=== PATIENT | female | born 1950 | race Caucasian/White ===

== ENCOUNTER 2017-08-07 18:06 | Emergency (ER) | payer MEDICARE ==
[2017-08-07 18:20] VITALS: BP 154/64; PULSE 70; RESP 16; TEMP 98.6; O2SAT 99
--- NOTE | 2017-08-07 18:51 | ED PDOC ---
HPI: Trauma/Fall - HPI Time Seen by Provider: 08/07/17 18:21 Chief Complaint (Nursing): Abnormal Skin Integrity Chief Complaint (Provider): Fall related facial injury History Per: Patient History/Exam Limitations: no limitations Onset/Duration Of Symptoms: Hrs Associated Symptoms: denies: Dizziness, LOC Additional Complaint(s): Patient is 67 y/o female with no significant past medical history presenting to the emergency department for facial redness and swelling status post fall. Reports that she was walking to her car when she slipped and fell. Redness to the right area of her forehead and redness/swelling of nose noted. Also reports numbness to the nose, bilateral wrist pain, and mild neck pain. Denies facial pain, headache, dizziness, loss of consciousness, visual changes, or other complaints. Tetanus shot up to date. PCP: Dr. Criss Gomez Past Medical History Reviewed: Historical Data, Nursing Documentation, Vital Signs Vital Signs: Last Vital Signs Temp 98.6 F 08/07/17 18:17 Pulse 70 08/07/17 18:17 Resp 16 08/07/17 18:17 BP 154/64 H 08/07/17 18:17 Pulse Ox 99 08/07/17 19:11 - Medical History PMH: No Chronic Diseases - Surgical History Other surgeries: Knee surgery - Family History Family History: States: Unknown Family Hx - Social History Current smoker - smoking cessation education provided: No Ex-Smoker (has not smoked in the last 12 months): No Alcohol: None Drugs: Denies - Immunization History Hx Tetanus Toxoid Vaccination: Yes - Home Medications Home Medications: Ambulatory Orders Medication Instructions Recorded Cephalexin [Keflex] 500 mg PO Q6 #28 capsule 07/13/16 Naproxen [Naprosyn] 500 mg PO BID #20 tablet 07/13/16 - Allergies Allergies/Adverse Reactions: Allergies Allergy/AdvReac Type Severity Reaction Status Date / Time No Known Allergies Allergy Verified 07/13/16 20:57 Review of Systems ROS Statement: Except As Marked, All Systems Reviewed And Found Negative Eyes: Negative for: Vision Change ENT: Positive for: Other (numbness of nose) Musculoskeletal: Positive for: Hand Pain (bilateral wrist pain), Other (mild neck pain) Skin: Positive for: Other (redness on right area of forehead and nasal bridge. no active bleeding) Neurological: Negative for: Headache, Dizziness, Other (loss of consciousness) Physical Exam - Reviewed Nursing Documentation Reviewed: Yes Vital Signs Reviewed: Yes - Physical Exam Appears: Positive for: Non-toxic, No Acute Distress Head Exam: Positive for: NORMAL INSPECTION, NORMOCEPHALIC (with abrasion to right forehead and nasal bridge. moderate swelling across proximal nasal bridge) Skin: Positive for: Normal Color, Warm, Dry Eye Exam: Positive for: Normal appearance ENT: Positive for: Other (bilateral nares are patent. 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 Negative for: Motor/ Sensory Deficits - ECG O2 Sat by Pulse Oximetry: 99 (RA) Pulse Ox Interpretation: Normal - Other Rad CT head X-Ray: Read By Radiologist X-Ray Interpretation: see below CT facial bones X-Ray: Read By Radiologist X-Ray Interpretation: see below Right and left wrist x-rays X-Ray: Interpreted by Me, Viewed By Me X-Ray Interpretation: no fx, no dis Medical Decision Making Medical Decision Making: Time: 18:50 Initial impression: Facial injury due to fall Initial plan: * Head CT scan w/o contrast * Maxillofacial CT scan w/o contrast * X-ray right and left wrists * X-ray right and left hands * Tylenol 975 mg PO * Reevaluation CT head: IMPRESSION: 1. Nondisplaced anterior nasal bone fracture with overlying soft tissue swelling. 2. Small inferior frontal scalp/forehead contusion. CT facial bones: IMPRESSION: 1. No acute intracranial abnormality. 2. Mild cortical volume loss. 3. Sequela of chronic microvascular disease. 4. Sequela of remote left lacunar infarction versus prominent Virchow-Bennie (perivascular) space. Patient aware of all diagnostic testing results, all questions answered. Patient was instructed to take Tylenol every 4-6 hours for pain. Patient was referred to ear, nose and throat specialist field application engineer for follow-up. Wound care instructions provided. Patient is aware she can return to emergency department any time if acutely worse. Scribe Attestation: Documented by Darlin Banda, acting as a scribe for VAN Hernandez. Provider Scribe Attestation: All medical record entries made by the Scribe were at my direction and personally dictated by me. I have reviewed the chart and agree that the record accurately reflects my personal performance of the history, physical exam, medical decision making, and the department course for this patient. I have also personally directed, reviewed, and agree with the discharge instructions and disposition. Procedures - Splinting Location: right wrist Pre-Made Type: velcro Pre-Proc Neuro Vasc Exam: normal Post-Proc Neuro Vasc Exam: normal Disposition - Clinical Impression Clinical Impression: Head injury, Nasal bone fracture, Facial contusion, Abrasions of multiple sites , Right wrist sprain, Left wrist sprain - Patient ED Disposition Is Patient to be Admitted: No Counseled Patient/Family Regarding: Studies Performed, Diagnosis, Need For Followup - Disposition Referrals: Jj Oliver MD [Staff Provider] - Disposition: Routine/Home Disposition Time: 21:24 Condition: STABLE Additional Instructions: Keep wounds clean and dry. Apply neosporin once per day to wounds. Ice affected areas. Take tylenol for pain as needed every 4-6 hrs. Follow up with ear, nose and throat specialist in 2-3 days. Instructions: Nasal Fracture (ED), Head Injury (ED), Abrasion (ED), Wrist Sprain (ED) Forms: [employer] (Citizen [place]), [facility] ED School/Work Excuse
--- NOTE | 2017-08-08 08:49 | CT ---
PROCEDURE: CT MAXILLOFACIAL BONES WITHOUT CONTRAST HISTORY: trauma COMPARISON: None TECHNIQUE: Contiguous axial CT images of the maxillofacial bones were obtained. Coronal and sagittal reformats were generated. Radiation dose: Total exam DLP = 742.09 mGy-cm. This CT exam was performed using one or more of the following dose reduction techniques: Automated exposure control, adjustment of the mA and/or kV according to patient size, and/or use of iterative reconstruction technique. FINDINGS: NASAL BONES: Small nondisplaced anterior nasal bone fracture is noted more prominent on the right with overlying soft tissue swelling. ORBITS: Unremarkable. PARANASAL SINUSES/ MASTOIDS: Clear. MAXILLA: Unremarkable. MANDIBLE/ TEMPOROMANDIBULAR JOINTS: Unremarkable. SKULL BASE: Unremarkable. TEMPORAL BONES: Middle ears and mastoid grossly unremarkable. OTHER FINDINGS: None. IMPRESSION: Acute nondisplaced fracture at the nasal bone. Overlying soft tissue swelling. Small frontal scalp/forehead soft tissue swelling suggestive of recent contusion. Preliminary report was submitted by [facility].
--- NOTE | 2017-08-08 10:02 | CT ---
PROCEDURE: CT HEAD WITHOUT CONTRAST. HISTORY: trauma COMPARISON: None available. TECHNIQUE: Axial computed tomography images were obtained through the head/brain without intravenous contrast. Radiation dose: Total exam DLP = 862.17 mGy-cm. This CT exam was performed using one or more of the following dose reduction techniques: Automated exposure control, adjustment of the mA and/or kV according to patient size, and/or use of iterative reconstruction technique. FINDINGS: HEMORRHAGE: No intracranial hemorrhage. BRAIN: Minimal periventricular white matter lucency is appreciate compatible chronic microangiopathy. The sulci and cisterns diffusely within normal limits including the ventricular volume overall. There is no mass effect. There is no suspicious extra-axial fluid collection in the midline brain anatomy anatomy appears diffusely unremarkable. There is a likely dilated perivascular is at the left basal ganglia though chronic lacune is not completely excluded here. VENTRICLES: Unremarkable. No hydrocephalus. CALVARIUM: No fracture or suspicious lytic or blastic change including the skullbase. Minimal right frontal scalp edema noted. PARANASAL SINUSES: Unremarkable as visualized. No significant inflammatory changes. MASTOID AIR CELLS: Unremarkable as visualized. No inflammatory changes. OTHER FINDINGS: None. IMPRESSION: Minimal age related neuro degenerate changes are identified without acute intracranial findings at this time. A chronic lacune is not completely excluded at the left basal ganglia where a likely related perigastric a cyst is favored. Minimal right frontal scalp edema is identified. Concordant report from [facility], 08/07/2017.
--- NOTE | 2017-08-08 11:49 | RAD ---
PROCEDURE: Bilateral Wrists Radiographs. HISTORY: trauma COMPARISON: None. FINDINGS: BONES: There is no acute fracture appreciated or suspicious lytic or blastic change identified bilaterally. A small exostosis seen related to the right radial distal metaphysis laterally. JOINT SPACES: Degenerate change are identified bilaterally at the carpal carpal, radiocarpal and carpal metacarpal articulations diffusely. These findings are advanced at the bilateral basal joints, particularly at the left side where there is gross deformity of the trapezium and migration of the 1st metacarpal bone laterally at the 1st metacarpal carpal joint. Lesser similar changes are present at the right basal joint. SOFT TISSUES: Right Wrist: Normal. Left Wrist: Normal. OTHER FINDINGS: None. IMPRESSION: No acute fracture or dislocation bilaterally. 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
--- NOTE | 2017-08-08 11:56 | RAD ---
PROCEDURE: Bilateral hand radiographs. HISTORY: trauma COMPARISON: None. FINDINGS: BONES: No acute fracture identified bilaterally or suspicious lytic or blastic change. Heterotopic calcifications are occasionally associated with the distal interphalangeal joints bilaterally as well as the base of thumb laterally. JOINTS: Degenerative joint changes seen throughout the interphalangeal joints as well as the new metacarpal phalangeal and carpal metacarpal joints diffusely. SOFT TISSUES: Right Hand: Normal. Left Hand: Normal. OTHER FINDINGS: None. IMPRESSION: No acute fracture or dislocation bilaterally. Degenerative changes are as discussed above bilaterally.
== END 2017-08-07 22:52 | disposition home or self-care (01) ==
LOC: H.ER 18:06
DX: S09.90XA Unspecified injury of head, initial encounter (principal); S02.2XXA Fracture of nasal bones, initial encounter for closed fracture; S63.501A Unspecified sprain of right wrist, initial encounter; S63.502A Unspecified sprain of left wrist, initial encounter; S00.83XA Contusion of other part of head, initial encounter; T14.8 Other injury of unspecified body region; W19.XXXA Unspecified fall, initial encounter; Y92.410 Unspecified street and highway as the place of occurrence of the external cause